=== PATIENT | female | born 1995 | race Caucasian/White ===

== ENCOUNTER 2018-03-16 15:56 | Outpatient (CLI) | payer MEDICAID ==
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
== END 2018-03-16 15:57 | disposition home or self-care (01) ==
LOC: DI.N 15:56
PROVIDERS: ATTEND Nurse Practitioner
DX: K92.1 Melena (principal); R10.9 Unspecified abdominal pain
CPT/HCPCS: 74019

== ENCOUNTER 2018-06-27 17:52 | Emergency (ER) | payer SELFPAY ==
[2018-06-27 18:10] VITALS: BP 139/93
[2018-06-27] MEDS ORDERED: BACITRACIN OINT TOP STA (18:28)
[2018-06-27] MEDS ORDERED: HYDROmorphone 2 MG/ML VIAL IM STA (18:28)
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
== END 2018-06-27 18:49 | disposition home or self-care (01) ==
LOC: ED 17:52
DX: T24.212A Burn of second degree of left thigh, initial encounter (principal); T24.211A Burn of second degree of right thigh, initial encounter; T23.171A Burn of first degree of right wrist, initial encounter; T31.0 Burns involving less than 10% of body surface; X10.0XXA Contact with hot drinks, initial encounter; R03.0 Elevated blood-pressure reading, without diagnosis of hypertension
CPT/HCPCS: 16020; 96372; 99281; 99283; A9270; J1170

== ENCOUNTER 2018-10-26 16:04 | Emergency (ER) | payer SELFPAY ==
[2018-10-26 16:11] VITALS: BP 149/85
[2018-10-26] MEDS ORDERED: LIDOCAINE VISCOUS 2% 15 ML UDC MM STA (16:25)
[2018-10-26] MEDS ORDERED: SODIUM CHLORIDE 0.9% 1,000 ML IV ONE (16:25)
[2018-10-26] MEDS ORDERED: MAG HYDROX/AL HYDROX/SIMETH 30 ML UDC PO STA ×2 (16:25→18:22)
[2018-10-26] MEDS ORDERED: PHENobarb/HYOSCY/ATROPINE/SCOP 5 ML UDC PO STA (16:26)
[2018-10-26 16:46] LABS: BILIRUBIN,URINE NEGATIVE (NEGATIVE); GLUCOSE, URINE (UA) NEGATIVE (NEGATIVE); KETONES,URINE (UA) NEGATIVE (NEGATIVE); LEUKOCYTE ESTERASE, URINE NEGATIVE (NEGATIVE); NITRITE,URINE NEGATIVE (NEGATIVE); OCCULT BLOOD,URINE NEGATIVE (NEGATIVE); PH,URINE 7.5 PH (5.0-7.5); PROTEIN,URINE NEGATIVE (NEGATIVE); UROBILINOGEN,URINE 1 (NORMAL) E.U./dL (NORMAL)
[2018-10-26 16:47] LABS: CLARITY,URINE CLEAR (CLEAR)
[2018-10-26 16:48] LABS: HCG UR QUAL NEGATIVE
[2018-10-26 17:02] LABS: BASOPHILS % (AUTO) 0.2 %; EOSINOPHILS % (AUTO) 0.4 %; HGB - HEMOGLOBIN 13.6 g/dL (12.0-16.0); LYMPHOCYTES # (AUTO) 2.3 10^3/uL (1.5-3.5); LYMPHOCYTES % (AUTO) 19.6 %; MEAN CORPUSCULAR HEMOGLOBIN 29.3 pg (27.0-31.0); MEAN CORPUSCULAR HGB CONC 33.6 g/dL (32.0-36.0); MEAN PLATELET VOLUME 9.6 fL (7.9-10.8); MONOCYTES # (AUTO) 0.5 10^3/uL (0.0-1.0); MONOCYTES % (AUTO) 4.2 %; NEUTROPHILS # (AUTO) 8.9 10^3/uL (1.5-6.6); NEUTROPHILS % (AUTO) 75.6 %; PLT - PLATELET COUNT 281 10^3/uL (130-450); RED BLOOD COUNT 4.66 10^6/uL (4.20-5.40); RED CELL DISTRIBUTION WIDTH 13.3 % (12.0-15.0); WHITE BLOOD COUNT 11.7 x10^3/uL (4.8-10.8)
[2018-10-26 17:06] LABS: ALBUMIN 4.3 g/dL (3.2-5.5); ALBUMIN/GLOBULIN RATIO 1.3 (1.0-2.2); BILIRUBIN,TOTAL 0.5 mg/dL (0.2-1.0); CALCIUM 9.4 mg/dL (8.5-10.3); CREATININE 0.7 mg/dL (0.4-1.0); TOTAL PROTEIN 7.7 g/dL (6.7-8.2)
[2018-10-26] MEDS ORDERED: KETOROLAC 30 MG/ML VIAL IVP STA (17:09)
[2018-10-26] MEDS ORDERED: ONDANSETRON 4 MG/2 ML VIAL IVP STA (17:10)
--- NOTE | 2018-10-26 18:08 | Ultrasound Report ---
Reason: RUQ abdominal pain, with vomiting. Procedure Date: 10/26/2018 Accession Number: [id number] / [id number] Procedure: US - Abdomen Limited CPT Code: FULL RESULT: EXAM: ABDOMEN ULTRASOUND LIMITED, RUQ EXAM DATE: 10/26/2018 05:52 PM. CLINICAL HISTORY: RUQ abdominal pain, with vomiting. COMPARISON: None. TECHNIQUE: Real-time scanning was performed with static images obtained. FINDINGS: Liver: Coarse hepatic echotexture is suggestive of steatosis. Submitted images of the liver demonstrate no focal lesions. Main portal vein flow: Hepatopetal. Gallbladder: No stones, wall thickening, or sonographic Valladares's sign. Biliary System: CBD measures 3 mm. No intrahepatic or extrahepatic ductal dilatation. Other: The visualized pancreas and right kidney are unremarkable. IMPRESSION: 1. Coarse hepatic echotexture suggestive of steatosis. 2. Gallbladder demonstrates no stones or wall thickening. 3. No intra-or extrahepatic bile duct dilatation. [facility]
--- NOTE | 2018-10-26 18:15 | ED Physician Documentation ---
PD HPI ABD PAIN - Stated complaint Stated Complaint: ABD PX/VOM - Chief complaint Chief Complaint: Abd Pain - History obtained from History obtained from: Patient - History of Present Illness Timing - onset: How many hours ago (4 or 5 hours travel pta.) Timing - details: Still present Quality: Aching Location: RUQ Associated symptoms: Nausea, Vomiting Similar symptoms before: No diagnosis (Reports history of similar symptoms about 3 months ago, without seeking medical attention.) - Additional information Additional information: The patient is a 23-year-old female who presents with upper abdominal pain radiating to her back. The pain started 4 or 5 hours prior to arrival and has persisted since that time. She has associated nausea and has vomited at least 4 times. She denies fever, diarrhea, or dysuria. Her last menstrual period was about 1 week ago. She reports having similar symptoms about 3 months ago, but did not have it medically evaluated. That episode resolved spontaneously after several days. Her pain today was exacerbated by eating a burrito. Review of Systems Constitutional: denies: Fever Nose: denies: Congestion Throat: denies: Sore throat Cardiac: denies: Chest pain / pressure Respiratory: denies: Dyspnea, Cough GI: reports: Abdominal Pain, Nausea, Vomiting. denies: Diarrhea : reports: LMP (One week ago.). denies: Dysuria Skin: denies: Rash Musculoskeletal: reports: Back pain (mid-back) Neurologic: denies: Headache PD PAST MEDICAL HISTORY - Past Medical History Past Medical History: No Respiratory: None Endocrine/Autoimmune: None GI: None - Past Surgical History Past Surgical History: No - Present Medications Home Medications: Ambulatory Orders Medication Instructions Recorded Confirmed Promethazine [Phenergan] 25 mg PO Q6H PRN #10 tab 10/26/18 raNITIdine HCl [Ranitidine HCl] 150 mg PO BID #30 tablet 10/26/18 - Allergies Allergies/Adverse Reactions: Allergies Allergy/AdvReac Type Severity Reaction Status Date / Time morphine AdvReac Severe Anaphylaxis Verified 10/26/18 16:11 - Social History Does the pt smoke?: No Smoking Status: Never smoker Does the pt drink ETOH?: Yes Does the pt have substance abuse?: No - Immunizations Immunizations are current?: Yes PD ED PE NORMAL - Vitals Vital signs reviewed: Yes (hypertensive) - General General: Alert and oriented X 3, Well developed/nourished, Other (Obese) - HEENT HEENT: Atraumatic, Moist mucous membranes, Pharynx benign - Neck Neck: Supple, no meningeal sign, No adenopathy - Cardiac Cardiac: RRR, No murmur - Respiratory Respiratory: No respiratory distress, Clear bilaterally - Abdomen Abdomen: Normal bowel sounds, Soft, No organomegaly, Other (Tenderness to palpation in the right upper quadrant/epigastric region, without rebound or guarding.) - Back Back: No CVA TTP - Derm Derm: No rash - Extremities Extremities: No edema, No calf tenderness / cord - Neuro Neuro: Alert and oriented X 3, No motor deficit, Normal speech Results - Vitals Vitals: Vital Signs - 24 hr 10/26/18 16:09 Temperature 36.4 C L Heart Rate 84 Respiratory 18 Rate Blood Pressure 149/85 H O2 Saturation 99 Oxygen O2 Source Room air - Labs Labs: Laboratory Tests 10/26/18 10/26/18 10/26/18 16:29 16:43 16:43 WBC 11.7 H RBC 4.66 Hgb 13.6 Hct 40.5 MCV 87.0 MCH 29.3 MCHC 33.6 RDW 13.3 Plt Count 281 MPV 9.6 Neut # (Auto) 8.9 H Lymph # (Auto) 2.3 Winston # (Auto) 0.5 Eos # (Auto) 0.0 Baso # (Auto) 0.0 Absolute Nucleated RBC 0.01 Nucleated RBC % 0.1 Sodium 135 Potassium 3.7 Chloride 104 Carbon Dioxide 25 Anion Gap 6.0 BUN 8 Creatinine 0.7 Estimated GFR (MDRD) 103 Glucose 116 H Calcium 9.4 Total Bilirubin 0.5 AST 49 H ALT 78 H Alkaline Phosphatase 120 Total Protein 7.7 Albumin 4.3 Globulin 3.4 Albumin/Globulin Ratio 1.3 Lipase 24 Urine Color YELLOW Urine Clarity CLEAR Urine pH 7.5 Ur Specific [place]rum 1.015 Urine Protein NEGATIVE Urine Glucose (UA) NEGATIVE Urine Ketones NEGATIVE Urine Occult Blood NEGATIVE Urine Nitrite NEGATIVE Urine Bilirubin NEGATIVE Urine Urobilinogen 1 (NORMAL) Ur Leukocyte Esterase NEGATIVE Ur Microscopic Review NOT INDICATED Urine Culture Comments NOT INDICATED Urine HCG, Qual NEGATIVE - Rads (name of study) RUQ U/S Radiology: Prelim report reviewed (1) Coarse hepatic echotexture suggestive of steatosis. 2) Gallbladder demonstrates no stones or wall thickening. 3) No intra-or extrahepatic bile duct dilatation.), See rad report PD MEDICAL DECISION MAKING - ED course Complexity details: reviewed results, re-evaluated patient, considered martin jono, d/w patient, d/w family ED course: Because of the patient's abdominal pain and vomiting is uncertain at this time. Likely etiology is gastritis/peptic ulcer disease. With a normal lipase, pancreatitis is unlikely. Biliary colic was considered, but ultrasound of the right upper quadrant reveals no evidence of gallstones or gallbladder wall thickening. CBC reveals a mildly elevated white blood cell count of 11.7. Chemistry panel is unremarkable. Treatment in the emergency department included administration of GI cocktail which provided slight improvement. Normal saline 1 L was administered IV, and Zofran 4 mg IV. Ketorolac 30 mg administered IV, with no change in her symptoms. An additional 30 mL of Maalox was administered orally, with further improvement in her symptoms. She is being discharged with prescriptions for ranitidine and for Phenergan. I discussed with her and her male office technician the results of her workup, symptomatic treatment and outpatient follow-up, as well as potentially worrisome signs or symptoms that should prompt reevaluation in the emergency department. Departure - Departure Disposition: 01 Home, Self Care Clinical Impression: Abdominal pain Qualifiers: Abdominal location: upper abdomen, unspecified Qualified Code(s): R10.10 - Upper abdominal pain, unspecified Vomiting Qualifiers: Vomiting type: unspecified Vomiting Intractability: non-intractable Nausea presence: with nausea Qualified Code(s): R11.2 - Nausea with vomiting, unspecified Condition: Stable Instructions: ED Abdominal Pain Unkn Cause, ED Nausea Vomiting Follow-Up: Anjali Lovell DNP [Primary Care Provider] - Prescriptions: Promethazine [Phenergan] 25 mg PO Q6H PRN #10 tab PRN Reason: Nausea / Vomiting raNITIdine HCl [Ranitidine HCl] 150 mg PO BID #30 tablet Comments: Minimize coffee, bre, alcohol, and spicy foods. Take ranitidine twice daily as prescribed. You can use Phenergan as prescribed if needed for nausea. You can drink liquid antacid, such as Maalox or Mylanta, if you develop recurrent symptoms. Follow-up with your primary physician within 2 weeks. Call to schedule appointment. Return to the emergency department if you develop increasing abdominal pain, persistent vomiting, or otherwise worsening symptoms. Discharge Date/Time: 10/26/18 18:50
== END 2018-10-26 18:50 | disposition home or self-care (01) ==
LOC: ED 16:04
DX: R10.10 Upper abdominal pain, unspecified (principal); R11.2 Nausea with vomiting, unspecified
CPT/HCPCS: 36415; 76705; 80053; 81003; 81025; 83690; 85025; 96374; 99283; A9270; 81001; 87086